=== PATIENT | male | born 1990 | race Caucasian/White ===

== ENCOUNTER 2021-03-17 14:06 | Emergency (ER) | payer BC, OTHER ==
[2021-03-17 14:15] VITALS: BP 116/79; PULSE 75; TEMP 98.6; BMI 21.5
[2021-03-17] MEDS ORDERED: ACETAMINOPHEN 325 MG TABLET (FP) PO ONE (15:03)
[2021-03-17] MEDS ORDERED: ACETAMINOPHEN 325 MG TABLET (FP) ONE (15:06)
== END 2021-03-17 15:16 | disposition home or self-care (01) ==
LOC: FER 14:06
DX: S06.0X0A Concussion without loss of consciousness, initial encounter (principal); G44.321 Chronic post-traumatic headache, intractable; V43.52XA Car driver injured in collision with other type car in traffic accident, initial encounter
CPT/HCPCS: 70450-TC; 99284-25

== ENCOUNTER 2021-07-27 09:11 | Emergency (ER) | payer OTHER ==
[2021-07-27 09:22] VITALS: BP 115/81; PULSE 70; TEMP 97.6; BMI 21.5
== END 2021-07-27 10:42 | disposition home or self-care (01) ==
LOC: FER 09:11
DX: F43.0 Acute stress reaction (principal)
CPT/HCPCS: 93005; 99283-25